=== PATIENT | female | born 1985 | race Hispanic/Latino ===

== ENCOUNTER 2018-10-13 10:08 | Inpatient (IN) | payer BC ==
[2018-10-13] MEDS ORDERED: METHYLERGONOVINE 0.2MG/ML AMP IM PRN ×2 (10:49→13:53)
[2018-10-13] MEDS ORDERED: Ringers Lactate 1,000 ML IV PRN (10:49)
[2018-10-13] MEDS ORDERED: CARBOPROST TROME 250 MCG/ML IM PRN (10:49)
[2018-10-13 10:57] VITALS: BMI 27.7
[2018-10-13] MEDS ORDERED: OXYTOCIN/LR 20 UNIT/1,000 ML BAG IV SCH ×2 (11:00→14:00)
[2018-10-13] MEDS ORDERED: Ringers Lactate 1,000 ML IV SCH (11:00)
[2018-10-13 11:15] LABS: RPR Titer ND
[2018-10-13 11:21] LABS: Absolute Lymphocytes (CBC) 2.4 K/uL (0.7-4.9); Absolute Monocytes 0.7 K/uL (0.1-1.3); Absolute Neutrophil 6.7 K/uL (1.8-8.0); Basophils % 0.6 % (0-1.3); Eosinophils % 2.5 % (0-4.4); Hematocrit 35.3 % (36.0-45.0); MPV 10.1 fL (7.6-11.3); Monocytes % 6.6 % (3.3-12.3); RBC Red Blood Cell Count 3.82 M/uL (3.86-4.86)
[2018-10-13 11:23] LABS: Urine Appearance CLEAR; Urine Bilirubin NEGATIVE (NEG); Urine Blood NEGATIVE (NEG); Urine Color YELLOW; Urine Glucose NEGATIVE (NEG); Urine Protein NEGATIVE (NEG); Urine Specific Gravity 1.015 (1.005-1.030); Urine Urobilinogen 0.2 mg/dL (0.2-1.0)
[2018-10-13] MEDS ORDERED: ROPIVACAINE HCL 100 ML IV PRN (11:30)
[2018-10-13] MEDS ORDERED: ROPIVACAINE HCL 0.2% 20ML AMP IV ONE (11:31)
[2018-10-13] MEDS ORDERED: FENTANYL CITR 100 MCG/2 ML IV ONE (11:31)
[2018-10-13 11:38] LABS: Urine Microscopic Reflex ORDER UMIC
[2018-10-13 11:47] LABS: Urine Bacteria 20-50 /HPF (<20); Urine Culture Reflex Order REFLEXED; Urine RBC <5 /HPF (NONE SEEN)
[2018-10-13] MEDS ORDERED: Ringers Lactate 1,000 ML IV ONE (12:03)
[2018-10-13] MEDS ORDERED: LIDOCAINE 1% MPF 30 ML VIAL ONE (13:45)
[2018-10-13] MEDS ORDERED: ACETAMINOPHEN 500 MG TAB PO PRN (13:53)
[2018-10-13] MEDS ORDERED: ONDANSETRON 4 MG (ODT) TAB PO PRN (13:53)
[2018-10-13] MEDS ORDERED: METHYLERGONOVINE 0.2 MG TAB PO PRN (13:53)
[2018-10-13] MEDS ORDERED: IBUPROFEN 200 MG TAB PO PRN (13:53)
--- NOTE | 2018-10-13 13:55 | P.BOP ---
Preoperative diagnosis: 39+wk Postoperative diagnosis: same, delivery viable female infant Primary procedure: SCVD Estimated blood loss: Less than 300ml Anesthesia: epidural Transferred to: Other (271) Condition: Good
[2018-10-13 20:58] LABS: RPR (Rapid Plasma Reagin) NON-REACT (NON-REACT)
[2018-10-14] MEDS ORDERED: Ringers Lactate 0 ML IV ONE (04:21)
--- NOTE | 2018-10-14 08:14 | PREOPHP ---
Date of Admission: 10/13/2018 History Of Present Illness: Ms. Solis is a 33-year-old female , 5, para 3-1-1-3 who is now at 39+ weeks gestation. She has been followed by me during this without complications other than prior spontaneous AB, prior 36 weeks delivery and mild anemia. She will be admitted today for induction of labor secondary to term with favorable cervix. Past Medical History: Please see record. Family History: Please see record. Review of Systems: She reports no recent cough, cold, fever, or chills. No recent nausea or vomiting. She denies any breast lumps or knots. Her infant has been active. She denies any vaginal bleeding or spotting or either bladder or bowel issues. Physical Examination: General: Reveals pleasant female, in no apparent distress. Neck: Supple without adenopathy or thyromegaly. Lungs: Clear. Cardiac: Regular rate and rhythm without murmurs. Breasts: Not examined. Abdomen: Estimated weight of 7 pounds. Pelvic: Cervix noted to be 2+ to 3 cm, vertex presentation, mid position minus 2 station. Extremities: No cyanosis, clubbing, or edema. Impression: Term , favorable cervix. Plan: Patient will be admitted for delivery.. DARIO/MEGHAN Voice ID: [id number]
--- NOTE | 2018-10-14 13:25 | OP ---
Surgeon: Paul Escobar MD Cydney is a 33-year-old female, 5, para 2-1-1-3, now at 39+ weeks gestatio n. She is admitted for elective induction of labor. She had a first stage of labor approximately 2 hours and 27 minutes, second stage of labor 5 minutes, delivered by spontaneous controlled vaginal de livery a 6-pound 2-ounce female , vertex OA. The cord was milked toward the with some d elayed cord clamping. This was clamped, cut, and the infant placed on mother's upper abdomen. Cord blood was obtained. Placenta was spontaneously expelled and appeared to be intact. Intrauterine exa mination revealed no retained placental fragments. She suffered no laceration. She delivered with e pidural anesthesia. Estimated total blood loss was less than 300 cc. DARIO/MEGHAN Voice ID: [id number] Report ID: [id number]
--- NOTE | 2018-10-14 13:25 | DS ---
Final Hospital Discharge Diagnosis: A 39+ week , delivered. Complications: None. Procedures: Artificial rupture of membranes, Pitocin induction of labor, placement of epidural santy ter, spontaneous controlled vaginal delivery of viable female . Hospital Course: The patient is a 33-year-old, , female, 5, para 2-1-1-3 at 39+ weeks gestation, who underwent elective induction. She had a short labor and delivery of a 6-martha nd 2-ounce female , 9 and 9. Lab work included an admission hemoglobin and hematocrit of 12.1 and 35.3, dismissal 32.0. She is Rh positive blood type. Rubella immune. She was dismissed t o continue taking her iron and vitamins, to be seen back in the office in 1 week period of t kyra. She will be breast-feeding her . Continue her iron and vitamins. DARIO/MEGHAN Voice ID: [id number] Report ID: [id number]
[2018-10-14 16:21] VITALS: BP 116/78
[2018-10-14 16:24] VITALS: TEMP 98
[2018-10-15 18:19] LABS: HBsAG Nonreactive (Nonreactive)
== END 2018-10-14 16:15 | disposition home or self-care (01) | DRG 807 ==
LOC: 2ND-WC 10:14
PROVIDERS: ADMIT Specialist; ATTEND Specialist
PROC: 10E0XZZ Delivery of Products of Conception, External Approach (ICD-10-PCS; principal; 2018-10-13)
PROC: 3E033VJ Introduction of Other Hormone into Peripheral Vein, Percutaneous Approach (ICD-10-PCS; 2018-10-13)
DX: O99.02 Anemia complicating childbirth (principal); Z37.0 Single live birth; D64.9 Anemia, unspecified; Z3A.39 39 weeks gestation of pregnancy
CPT/HCPCS: 36415; 81003; 81015; 85014; 85025; 86592; 86901; 87086; 87088; 87340; J2210; J2590; J2795; J3010